=== PATIENT | male | born 1980 | race Two or more races ===

== ENCOUNTER → 2018-09-21 | Outpatient (CLI) | payer OTHER | END | disposition home or self-care (01) | LOC: RAD 16:26 | DX: M77.31 Calcaneal spur, right foot (principal) ==

== ENCOUNTER 2018-09-22 14:30 | Outpatient (CLI) | payer OTHER | END 2018-09-22 14:41 | disposition home or self-care (01) | LOC: SONOGRAMA 14:30 | DX: M25.561 Pain in right knee (principal) ==

== ENCOUNTER → 2018-10-18 | Outpatient (CLI) | payer OTHER | END | disposition home or self-care (01) | LOC: RAD 16:02 | DX: K59.09 Other constipation (principal) ==

== ENCOUNTER → 2018-10-19 | Outpatient (CLI) | payer OTHER | END | disposition home or self-care (01) | LOC: RAD 08:35 | DX: M77.31 Calcaneal spur, right foot (principal) ==

== ENCOUNTER → 2018-11-11 | Outpatient (CLI) | payer OTHER | END | disposition home or self-care (01) | LOC: MRI 07:45 | DX: M23.8X1 Other internal derangements of right knee (principal) | CPT/HCPCS: 73718 ==

== ENCOUNTER 2018-11-28 09:09 | Outpatient (CLI) | payer OTHER | END 2018-11-28 09:10 | disposition home or self-care (01) | LOC: RAD 09:09 | DX: S92.212A Displaced fracture of cuboid bone of left foot, initial encounter for closed fracture (principal) ==